=== PATIENT | female | born 1995 | race Two or more races ===

== ENCOUNTER 2023-10-24 00:42 | Emergency (ER) | payer BC, SELFPAY ==
[2023-10-24 00:58] VITALS: BP 120/91
--- NOTE | 2023-10-24 01:20 | ED.GENMED ---
History of Present Illness
General
Chief Complaint: Breathing Problem
Source: patient
Exam Limitations: none
Time Seen by Provider: 10/24/23 01:09
Travel History
Have you had any contact with someone who has COVID-19?: No
Do you have any symptoms of coronavirus? Fever > 100 degrees, chills, cough, shortness of breath, sore throat, loss of taste or smell, muscle aches, or headache?: No
History of Present Illness
History of Present Illness:
This is a 27 year old female that comes in with multiple complaints. State that when she laid down she was SOB and had some burning in her chest and abd. Sates that she awoke with a panic attack. States that she felt there was a lump in her throat.
States that she also has had this left sided abd pain and is not moving her bowel normally. States that she is taking a Linzess and is also taking a medication that is similar to Ozempic. States that she also has a headache. Denies any fever,
chills, chest pain, vomiting, diarrhea, dizziness, urinary burning.
Past History
Past History
ED Past Medical History: Other (Anxiety, Cellulitis); Negative Asthma, HTN, Hypercholesterolemia or NIDDM
ED Past Surgical History: Other (rhinoplasty, Lasik eye surgery, Shakeel ear tubes)
Patient has exhibited threatening behavior?: No
PSI?: No
Social History
Tobacco: Vaping
Alcohol: Occasional
Drug: None
Personal: Single
Living: with family
Employment: Employed (At the grocery store and student)
Family History
Family History: Other (Paternal grandfather with DVT otherwise noncontributory); Negative Early CAD or CAD
Review of Systems
Review of Systems
All Other Systems: ROS reviewed and negative except as documented in HPI and ROS
Constitutional: Denies fever or chills
EENT: Reports no symptoms
Respiratory: Reports trouble breathing; Denies cough
Cardiac: Reports no symptoms; Denies chest pain
ABD/GI: Reports abdominal pain and constipated; Denies nausea, vomiting or diarrhea
: Reports no symptoms; Denies dysuria, frequency or urgency
Musculoskeletal: Reports no symptoms
Skin: Reports no symptoms
Neurological: Reports headache; Denies dizzy
Psychiatric: Reports no symptoms
Phy Exam
General Physical Exam
General Presentation: no apparent distress
General age: appears stated age
General Skin: warm and dry
General Habitus: normal
General Mental: alert
General Hydration: dry mucous membranes
ENT Exam
ENT Exam: TM's normal, pharynx normal and neck supple
Eye Exam
Eye Exam: EOMI
Cardiovascular Exam
Cardiovascular Exam: regular rate/rhythm, no edema, no murmur and normal peripheral pulses
Pulmonary Exam
Pulmonary Exam: lungs clear, no respiratory distress, no rales, chest non tender, no crackles, no rhonchi, no wheezing and no cough
Gastrointestinal Exam
Gastrointestinal Exam: normal bowel sounds, soft, no organomegaly, no pulsatile mass, non distended and tender (LLQ tenderness with palpation)
Musculoskeletal Exam
Musculoskeletal Exam: full ROM and no edema
Skin Exam
Skin Exam: normal color, warm/dry, no rash and no petechia
Psychiatric Exam
Psychiatric Exam: normal mood/affect
Course
Orders/Labs/Results
Orders:
Orders
10/24/23 01:19
CT Abd/pelvis W Iv Cont Urgent
Comment:
Reason For Exam: Left lower abd pain
0.9% Sodium Chloride 1000 ml [Nss] 1,000 ml IV BOLUS
Pantoprazole [Protonix IV] 40 mg IV NOW STA
Test Result ONCE
CR Chest - 2 Views Urgent
Comment:
Reason For Exam: SOB
10/24/23 01:32
Complete Blood Count/With Diff Urgent
Comprehensive Metabolic Panel Urgent
HCG, Serum Qualitative Screen Urgent
Lipase Urgent
Abnormal Lab Results
10/24/23
01:32
RBC 5.63 H 10^6/uL
(4.20-5.40)
Hgb 11.4 L g/dL
(12.0-16.0)
Hct 34.8 L %
(37.0-47.0)
MCV 61.8 L fL
(81.0-99.0)
MCH 20.2 L pg
(27.0-31.0)
MCHC 32.8 L g/dL
(33.0-37.0)
RDW 19.7 H %
(11.5-14.5)
Neutrophils % 41.2 L %
(42.2-75.2)
Monocytes % 9.5 H %
(1.7-9.3)
Total Bilirubin 1.7 H mg/dl
(0.2-1.3)
10/24/23 01:32
10/24/23 01:32
H/H slightly low but consistent with prior labs, Anemia, total shakeel mildly elevated. Lipase normal at 197, HCG negative.
Vital Signs
Initial and Last Documented VS:
Initial Vital Signs
Temp Pulse Resp BP Pulse Ox
97.8 F 87 18 120/91 100
10/24/23 00:58 10/24/23 00:58 10/24/23 00:58 10/24/23 00:58 10/24/23 00:58
Last Documented Vital Signs
Temp Pulse Resp BP Pulse Ox
97.8 F 87 18 120/91 100
10/24/23 00:58 10/24/23 00:58 10/24/23 00:58 10/24/23 00:58 10/24/23 00:58
MDM/Problems Addressed
Differential Diagnosis Includes:
Anxiety, Constipation. GERD,
MDM/Problems Addressed:
This is a 27 year old female that comes in with c/o SOB and abd pain. States that she had this lump in her throat and she took her Pepcid but this did not help. States that she has also had left lower abd pain for a few days and today she saw some
blood very small amount in her stool. States that she doesn't move her bowels normally and she was given Linzess.
Will check labs, CT scan and chest x-ray.
Back into see patient. Explained that her CT shows she has enteritis. this will go away on it own. Patient blood work shows some anemia but her Hgb is similar to prior labs. This was most likely a panic attack. Patient to follow up with the family
doctor. Return with any concerns.
Chronic conditions affecting care:
NA
Acute Exacerbation and/or Progression of Chronic Illness:
NA
*Radiology
Radiology exam reviewed: preliminary read by ED provider (Chest- Negative for active disease ), radiology read reviewed (CT night hawk-Fluid in nondistended mid small bowel, nonspecific, consider possible mild enteritis in the appropriate clinical
setting. Several prominent subcentimeter right lower quadrant ileocolic and central mesenteric lymph nodes, suggesting mild mesenteric lymphadenitis primary to reactive. . ) and all reviewed NAD by ED Provider (CT cont- Symmetric renal contrast
excretion No AAA, bowel obstruction, or free air. Minimal motion unsharpness. 3cm hemorrhagic follicle right ovary series 201 image 71. No abnormal free fluid in the pelvis. Lung bases are clear. )
*Pulse Oximetry
Patient hypoxic: no
*EKG
Interpreted by ED Provider?: NA
Rate: EKG- N/A
*Cotton Weigher Operator Interpretation
Rate: Cotton Weigher Operator- N/A
*Critical Care Note
Total Time (30-74mins, 75-104mins- exclusive of procedures): Not Applicable
ED Attending Note
-
Portions of this chart may have been created with voice recognition software.� Occasional wrong word or��sound alike� substitutions may have occurred due to the inherent limitations of voice recognition software.
Discharge Plan
Departure
Patient Disposition: Home (Routine Discharge)
Date of Disposition: 10/24/23
Time of Disposition: 03:40
Patient with high blood pressure during this ER visit?: No
Condition: Good
Covid-19: Not Applicable
Discharge Problem:
Panic attack, GERD (gastroesophageal reflux disease), Enteritis
Instructions: Acid reflux and GERD in adults, Anxiety, Adult ED
Prescriptions:
No Action
No Current Medications
0
Referrals:
Audra Hernandes MD [Family Provider] - Follow up in 2-3 days
Activity Restrictions/Additional Instructions:
As discussed, your blood work show that you are anemia. Your Chest X-ray is normal and your CT shows Enteritis. This was most likely a panic attack with your Reflux. Please stay away form any soda with caffeine or coffee. Continue with your Pepcid
daily. The enteritis will go away on its own. Please increase your water intake to 8-8oz glasses daily. Follow up with the family doctor for recheck. IF YOU HAVE ANY DIARRHEA PLEASE STAY AWAY FORM MILK AND MILK PRODUCTS. IF YOU HAVE ANY OTHER
CONCERNS PLEASE RETURN TO THE EMERGENCY ROOM.
Interventions
Interventions:
*Risk Screen - Suicide Last Done: 10/24/23 00:58
*General Assessment Last Done: 10/24/23 00:58
*Neglect/Abuse Screening Last Done: 10/24/23 00:58
ED- Fall Risk Assessment Last Done: 10/24/23 00:58
*ED COVID-19 Vaccine History Last Done: 10/24/23 00:58
ED- Cardiac Assessment Last Done: 10/24/23 01:35
ED- Pulmonary Assessment Last Done: 10/24/23 01:35
Discharge Date and Time
Print Language: PASHTO
[2023-10-24] MEDS: PROTONIX IV 40 MG IV (01:33)
[2023-10-24] MEDS: NSS 1000 IV (01:33)
[2023-10-24 01:35] VITALS: BMI 39.2
[2023-10-24 01:42] LABS: % Eosinophils 1.2 % (0-6); % Immature Granulocytes 0.2 % (0-0.5); % Lymphocytes 46.9 % (20.5-51.1); % Monocytes 9.5 % (1.7-9.3); % Neutrophils 41.2 % (42.2-75.2); Absolute Basophils 0.1 10^3/uL (0-0.2); Absolute Eosinophils 0.1 10^3/uL (0-0.7); Absolute Lymphocytes 2.8 10^3/uL (1.2-3.4); Absolute Monocytes 0.6 10^3/uL (0.1-0.6); Absolute Neutrophils 2.4 10^3/uL (1.4-6.5); Hematocrit 34.8 % (37.0-47.0); Hemoglobin 11.4 g/dL (12.0-16.0); Mean Corp Hgb Conc. 32.8 g/dL (33.0-37.0); Mean Corpuscular Hgb 20.2 pg (27.0-31.0); Mean Corpuscular Volume 61.8 fL (81.0-99.0); Nucleated Red Blood Cells % 0 %; Platelet Count 241 10^3/uL (130-400); Red Blood Cell Count 5.63 10^6/uL (4.20-5.40); Red Cell Dist. Width 19.7 % (11.5-14.5); White Blood Cell Count 5.9 10^3/uL (4.8-10.8)
[2023-10-24 01:58] LABS: ALT (SGPT) 22 U/L (0-35); AST (SGOT) 26 U/L (14-36); Albumin 4.5 g/dl (3.5-5.0); Alkaline Phosphatase 63 U/L (38-126); Blood Urea Nitrogen 16 mg/dl (7-17); Calcium 9.5 mg/dl (8.4-10.2); Carbon Dioxide 24 mmol/L (22-30); Chloride 107 mmol/L (98-107); Estimated Creatinine Clearance > 125 ml/min; Glucose 89 mg/dl (70-99); HCG, Serum Qualitative Screen Negative; Lipase 197 U/L (23-300); Potassium 3.6 mmol/L (3.5-5.1); Sodium 139 mmol/L (135-145); Total Bilirubin 1.7 mg/dl (0.2-1.3); Total Protein 6.8 g/dl (6.3-8.2); eGFR > 60.00
[2023-10-24 03:40] VITALS: BP 112/56
== END 2023-10-24 03:54 | disposition home or self-care (01) ==
LOC: EMR 00:42
PROVIDERS: Clinical Nurse Specialist Family Health; EMERGENCY PHYSICIAN Emergency Medicine; FAMILY PHYSICIAN Family Medicine
DX: R06.02 Shortness of breath (principal); R10.9 Unspecified abdominal pain; D64.9 Anemia, unspecified; F41.0 Panic disorder [episodic paroxysmal anxiety]; K21.9 Gastro-esophageal reflux disease without esophagitis; K52.9 Noninfective gastroenteritis and colitis, unspecified; F17.290 Nicotine dependence, other tobacco product, uncomplicated
CPT/HCPCS: 99284; 96374; 96361; 71046; 74177; 80053; 83690; 84703; 85025; Q9967